=== PATIENT | male | born 1995 | race African-American/Black ===

== ENCOUNTER 2016-03-24 01:44 | Emergency (ER) | payer OTHER ==
[~2016-03-24] VITALS: Ht 177.8 cm; Wt 66.2 kg
[2016-03-24 07:04] VITALS: BP 152/77
== END 2016-03-24 07:00 ==
LOC: ER 01:46
DX: M54.2 Cervicalgia (principal); R51 Headache; M25.572 Pain in left ankle and joints of left foot; J45.909 Unspecified asthma, uncomplicated; V49.49XA Driver injured in collision with other motor vehicles in traffic accident, initial encounter; Y93.9 Activity, unspecified; Y99.8 Other external cause status; Y92.410 Unspecified street and highway as the place of occurrence of the external cause
CPT/HCPCS: 70450; 72125; 73610